=== PATIENT | female | born 1995 | race Caucasian/White ===

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

== ENCOUNTER 2018-01-09 16:59 | Outpatient (CLI) | payer MEDICAID | END 2018-01-09 17:00 | disposition EMS.NT | LOC: EMS 16:59 | PROVIDERS: ATTEND Surgery | DX: M25.561 Pain in right knee (principal); V49.40XA Driver injured in collision with unspecified motor vehicles in traffic accident, initial encounter; Y92.413 State road as the place of occurrence of the external cause ==

== ENCOUNTER 2018-02-27 08:00 | Outpatient (CLI) | payer MEDICAID | END 2018-02-27 08:01 | disposition home or self-care (01) | LOC: LAB.R 08:00 | PROVIDERS: ATTEND Obstetrics & Gynecology | DX: N89.8 Other specified noninflammatory disorders of vagina (principal); Z11.3 Encounter for screening for infections with a predominantly sexual mode of transmission | CPT/HCPCS: 87480; 87491; 87510; 87591; 87660 ==

== ENCOUNTER 2018-03-20 08:00 | Outpatient (CLI) | payer MEDICAID | END 2018-03-20 08:01 | LOC: LAB.R 08:00 | PROVIDERS: ATTEND Obstetrics & Gynecology | DX: Z11.3 Encounter for screening for infections with a predominantly sexual mode of transmission (principal) | CPT/HCPCS: 87491; 87591 ==

== ENCOUNTER 2018-04-08 11:30 | Emergency (ER) | payer MEDICAID ==
[2018-04-08 11:42] VITALS: BP 113/71
--- NOTE | 2018-04-08 12:30 | ED Physician Documentation ---
PD HPI URI - Stated complaint Stated Complaint: THROAT PX - Chief complaint Chief Complaint: Heent - History obtained from History obtained from: Patient - History of Present Illness Timing - onset: How many days ago (1-2) Timing duration: Days Timing details: Abrupt onset, Still present Associated symptoms: Fever, Sore throat, Swollen nodes. No: Nasal congestion, Dry cough, NVD Contributing factors: No: Sick contact, Travel, Immunocompromised Worsened by: Other (swallowing) Recently seen: Not recently seen Review of Systems Constitutional: reports: Fever, Myalgias Nose: denies: Rhinorrhea / runny nose, Congestion, Sinus pressure / pain Throat: reports: Sore throat, Swollen tonsils Respiratory: denies: Cough PD PAST MEDICAL HISTORY - Past Medical History Cardiovascular: None Respiratory: None Neuro: None - Past Surgical History Past Surgical History: No - Present Medications Home Medications: Ambulatory Orders Medication Instructions Recorded Confirmed Cephalexin [Keflex] 500 mg PO QID #18 capsule 04/08/18 Dexamethasone [Decadron] 4 mg PO DAILY #5 tablet 04/08/18 - Allergies Allergies/Adverse Reactions: Allergies Allergy/AdvReac Type Severity Reaction Status Date / Time No Known Drug Allergies Allergy Verified 04/08/18 11:41 - Social History Does the pt smoke?: No Smoking Status: Never smoker Does the pt drink ETOH?: No Does the pt have substance abuse?: No - Immunizations Immunizations are current?: Yes PD ED PE NORMAL - Vitals Vital signs reviewed: Yes - General General: Alert and oriented X 3, Well developed/nourished - HEENT HEENT: Atraumatic, Ears normal. No: Pharynx benign (enlarged tonsils with exudate. No peritonsillar swelling. ) - Neck Neck: Supple, no meningeal sign, Other (anterior adenopathy. ) - Cardiac Cardiac: RRR, No murmur - Respiratory Respiratory: Clear bilaterally - Abdomen Abdomen: Soft, Non tender - Derm Derm: Normal color, Warm and dry, No rash Results - Vitals Vitals: Oxygen O2 Source Room air - Labs Labs: Microbiology 04/08/18 12:03 Group A Strep Throat Culture - Final Throat MIXED OROPHARYNGEAL ASHLEY PRESENT. NO BETA STREP PRESENT IN CULTURE. Laboratory Tests 04/08/18 12:03 Group A Strep Rapid Negative PD MEDICAL DECISION MAKING - ED course Complexity details: considered differential (has high suspicion for bacterial (4 /4 Centor)), d/w patient - Sepsis Event Vital Signs: Oxygen O2 Source Room air Departure - Departure Disposition: 01 Home, Self Care Clinical Impression: Pharyngitis, acute Qualifiers: Pharyngitis/tonsillitis etiology: unspecified etiology Qualified Code(s): J02.9 - Acute pharyngitis, unspecified Condition: Stable Record reviewed to determine appropriate education?: Yes Instructions: ED Strep Pharyngitis Poss Prescriptions: Cephalexin [Keflex] 500 mg PO QID #18 capsule Dexamethasone [Decadron] 4 mg PO DAILY #5 tablet Comments: Drink lots of fluids. Decadron for the swelling. Tylenol or ibuprofen if needed for pains. Cephalexin antibiotic as this is suspicious for strep. The rapid test is negative but the culture will take a couple days for the result we will treated as possible strep pending the culture. If that is negative then we can stop the antibiotic. Off work today. Recheck if not improving well over the next few days. Forms: Activity restrictions Discharge Date/Time: 04/08/18 13:10
[2018-04-08] MEDS ORDERED: DEXAMETHASONE 10 MG/ML VIAL PO STA (13:02)
[2018-04-08] MEDS ORDERED: cephALEXin 250 MG CAPSULE PO STA (13:02)
[2018-04-08] MEDS ORDERED: ACETAMINOPHEN 325 MG TABLET PO STA (13:02)
== END 2018-04-08 13:10 | disposition home or self-care (01) ==
LOC: ED 11:30
DX: J02.9 Acute pharyngitis, unspecified (principal)
CPT/HCPCS: 87070; 87430; 99283; A9270

== ENCOUNTER 2018-04-12 21:15 | Emergency (ER) | payer MEDICAID ==
[2018-04-12 21:22] VITALS: BP 120/77
--- NOTE | 2018-04-12 21:26 | ED Physician Documentation ---
PD HPI HEENT - Stated complaint Stated Complaint: SORE THROAT - Chief complaint Chief Complaint: Heent - History obtained from History obtained from: Patient - History of Present Illness Timing - onset: Other (She has had a week of sore throat, had a runny nose today and is bringing phlegm up from the throat but not coughing per se. She has had some body aches and lower abdominal pain as well and fatigue. She was seen here about 5 days ago diagnosed with clinical strep, both a rapid strep and subsequently the culture have been negative. She continues to have a severe sore throat.) Review of Systems Constitutional: reports: Myalgias, Fatigue. denies: Fever Ears: denies: Ear pain Nose: denies: Rhinorrhea / runny nose Throat: reports: Sore throat GI: denies: Vomiting, Diarrhea PD PAST MEDICAL HISTORY - Past Medical History Cardiovascular: None Respiratory: None Neuro: None - Past Surgical History Past Surgical History: No - Present Medications Home Medications: Ambulatory Orders Medication Instructions Recorded Confirmed Meloxicam [Mobic] 7.5 mg PO BIDWM PRN #15 tablet 04/12/18 - Allergies Allergies/Adverse Reactions: Allergies Allergy/AdvReac Type Severity Reaction Status Date / Time No Known Drug Allergies Allergy Verified 04/12/18 21:20 - Social History Does the pt smoke?: No Smoking Status: Never smoker Does the pt drink ETOH?: No Does the pt have substance abuse?: No - Immunizations Immunizations are current?: Yes PD ED PE NORMAL - Vitals Vital signs reviewed: Yes - General General: Alert and oriented X 3, No acute distress - HEENT HEENT: Other (Tonsils are red but not swollen with some exudates especially on the left but no asymmetry otherwise.) - Neck Neck: Supple, no meningeal sign, No bony TTP, Other (Moderate anterior cervical adenopathy) - Abdomen Abdomen: Soft, Non tender - Derm Derm: No rash - Neuro Neuro: Alert and oriented X 3, Normal speech - Psych Psych: Normal mood, Normal affect Results - Vitals Vitals: Vital Signs - 24 hr 04/12/18 21:18 Temperature 36.5 C Heart Rate 83 Respiratory 16 Rate Blood Pressure 120/77 O2 Saturation 99 Oxygen O2 Source Room air - Labs Labs: Laboratory Tests 04/12/18 21:35 Infectious Greenlee Assay NEGATIVE PD MEDICAL DECISION MAKING - Sepsis Event Vital Signs: Vital Signs - 24 hr 04/12/18 21:18 Temperature 36.5 C Heart Rate 83 Respiratory 16 Rate Blood Pressure 120/77 O2 Saturation 99 Oxygen O2 Source Room air Departure - Departure Disposition: 01 Home, Self Care Clinical Impression: Viral pharyngitis Condition: Good Record reviewed to determine appropriate education?: Yes Instructions: ED Pharyngitis Viral Prescriptions: Meloxicam [Mobic] 7.5 mg PO BIDWM PRN #15 tablet PRN Reason: Pain Comments: Greenlee and strep test are negative, STD tests on your throat are pending and we will call you in approximately 3 days of positive. Follow-up with your doctor in a week if not better.
[2018-04-12] MEDS ORDERED: IBUPROFEN 800 MG TABLET PO STA (22:02)
[2018-04-17 17:06] LABS: C.TRACHOMATIC RNA TMA THROAT NOT DETECTED; N.GONORRHOEAE RNA TMA THROAT NOT DETECTED
== END 2018-04-12 22:12 | disposition home or self-care (01) ==
LOC: ED 21:15
DX: J02.8 Acute pharyngitis due to other specified organisms (principal)
CPT/HCPCS: 36415; 86308; 87491; 99281; 99283; A9270

== ENCOUNTER 2019-10-07 11:09 | Emergency (ER) | payer MEDICAID, OTHER ==
[2019-10-07 11:18] VITALS: BP 127/79
--- NOTE | 2019-10-07 12:14 | ED Physician Documentation ---
PD HPI CHEST PAIN - Stated complaint Stated Complaint: MED REACTION - Chief complaint Chief Complaint: Abd Pain - History obtained from History obtained from: Patient - History of Present Illness Timing - onset: Other (She is been on doxycycline for about 6 months for acne. 2 days ago she took it at bedtime and woke up the next day with difficulty swallowing and pain with swallowing. There is no pain when she is upright. However she does have significant pain when laying flat.) Review of Systems Constitutional: denies: Fever, Chills Throat: denies: Sore throat Cardiac: denies: Palpitations Respiratory: denies: Dyspnea, Cough PD PAST MEDICAL HISTORY - Past Medical History Cardiovascular: None Respiratory: None Neuro: None - Past Surgical History Past Surgical History: No - Present Medications Home Medications: Ambulatory Orders Medication Instructions Recorded Confirmed Meloxicam [Mobic] 7.5 mg PO BIDWM PRN #15 tablet 04/12/18 Mometasone Furoate [Nasonex] 1 spray NS BID #1 spray.pump 04/12/18 Magic Mouthwash 5 ml PO Q4H PRN #100 ml 10/07/19 - Allergies Allergies/Adverse Reactions: Allergies Allergy/AdvReac Type Severity Reaction Status Date / Time No Known Drug Allergies Allergy Verified 04/12/18 21:20 - Social History Does the pt smoke?: No Smoking Status: Never smoker Does the pt drink ETOH?: No Does the pt have substance abuse?: No - Immunizations Immunizations are current?: Yes PD ED PE NORMAL - Vitals Vital signs reviewed: Yes - General General: Alert and oriented X 3, No acute distress - HEENT HEENT: PERRL, EOMI, Pharynx benign - Neck Neck: Supple, no meningeal sign, No bony TTP - Cardiac Cardiac: RRR, No murmur - Respiratory Respiratory: No respiratory distress, Clear bilaterally, Other (No rub or crunch) - Abdomen Abdomen: Non tender - Neuro Neuro: Alert and oriented X 3, Normal speech Results - Vitals Vitals: Vital Signs - 24 hr 10/07/19 11:12 Temperature 36.5 C Heart Rate 80 Respiratory 18 Rate Blood Pressure 127/79 O2 Saturation 100 Oxygen O2 Source Room air Departure - Departure Disposition: 01 Home, Self Care Clinical Impression: Pill esophagitis due to tetracycline Condition: Good Record reviewed to determine appropriate education?: Yes Instructions: Esophagitis Prescriptions: Magic Mouthwash 5 ml PO Q4H PRN #100 ml PRN Reason: Chest Pain Comments: This should go away in another couple of days. Return for new worsening symptoms. Do not take your doxycycline again until completely better. As discussed doxycycline should be taken well before bedtime and with a significant mount of water. You should be upright for at least half an hour after taking doxycycline.
== END 2019-10-07 12:16 | disposition home or self-care (01) ==
LOC: ED 11:09
DX: K20.8 Other esophagitis (principal); T36.4X5A Adverse effect of tetracyclines, initial encounter
CPT/HCPCS: 99282; 99283

== ENCOUNTER 2019-10-10 13:37 | Emergency (ER) | payer OTHER ==
[2019-10-10 13:53] VITALS: BP 112/65
--- NOTE | 2019-10-10 14:05 | ED Physician Documentation ---
History of Present Illness - Stated complaint Stated Complaint: PX WHEN EATING - Chief complaint Chief Complaint: Abd Pain - History obtained from History obtained from: Patient (4-5 nights ago's developed pill esophagitis from doxycycline. Seen here, exam was negative. Sent home with Magic mouthwash which is not very helpful and she continues to have ripping high epigastric/low sternal pain when swallowing or laying flat.) Review of Systems Constitutional: denies: Fever, Chills Cardiac: denies: Palpitations Respiratory: denies: Cough GI: denies: Nausea, Vomiting, Diarrhea PD PAST MEDICAL HISTORY - Past Medical History Cardiovascular: None Respiratory: None Neuro: None - Past Surgical History Past Surgical History: No - Present Medications Home Medications: Ambulatory Orders Medication Instructions Recorded Confirmed Meloxicam [Mobic] 7.5 mg PO BIDWM PRN #15 tablet 04/12/18 Mometasone Furoate [Nasonex] 1 spray NS BID #1 spray.pump 04/12/18 Magic Mouthwash 5 ml PO Q4H PRN #100 ml 10/07/19 Famotidine [Pepcid] 20 mg PO BID #60 tablet 10/10/19 - Allergies Allergies/Adverse Reactions: Allergies Allergy/AdvReac Type Severity Reaction Status Date / Time No Known Drug Allergies Allergy Verified 04/12/18 21:20 - Social History Does the pt smoke?: No Smoking Status: Never smoker Does the pt drink ETOH?: No Does the pt have substance abuse?: No - Immunizations Immunizations are current?: Yes PD ED PE NORMAL - Vitals Vital signs reviewed: Yes - General General: Alert and oriented X 3, No acute distress - HEENT HEENT: PERRL, EOMI - Neck Neck: Supple, no meningeal sign, No bony TTP - Cardiac Cardiac: RRR, No murmur - Respiratory Respiratory: No respiratory distress, Clear bilaterally - Abdomen Abdomen: Non tender - Extremities Extremities: No edema, No calf tenderness / cord - Neuro Neuro: Alert and oriented X 3, Normal speech Results - Vitals Vitals: Vital Signs - 24 hr 10/10/19 13:49 Temperature 36.9 C Heart Rate 69 Respiratory 16 Rate Blood Pressure 112/65 O2 Saturation 98 Oxygen O2 Source Room air - Labs Labs: Laboratory Tests 10/10/19 14:07 Ur Specific [place] 1.020 Urine HCG, Qual NEGATIVE - Rads (name of study) 2v chest Radiology: EMP read contemporaneously (NAD) PD MEDICAL DECISION MAKING - ED course ED course: 23-year-old woman with persistent symptoms of pill esophagitis, x-ray done without evidence of pneumomediastinum etc. Her exam remains normal. We will trial some Pepcid. Departure - Departure Disposition: Home, Self Care Clinical Impression: Pill esophagitis due to tetracycline Condition: Good Record reviewed to determine appropriate education?: Yes Instructions: Esophagitis Prescriptions: Famotidine [Pepcid] 20 mg PO BID #60 tablet Comments: Your x-ray looks okay, continue to not take your doxycycline until completely better. Add on the Pepcid which should help with the inflammation in your esophagus, although unfortunately it does not work as fast as the lidocaine so may take a day or 2 to kick in. Call your doctor to arrange a follow-up appointment, make the next available appointment. In the interim, return anytime if worse or if new symptoms develop. Discharge Date/Time: 10/10/19 15:43
[2019-10-10 14:34] LABS: HCG UR QUAL NEGATIVE
--- NOTE | 2019-10-10 15:27 | XRAY Report ---
Reason: chest pain Procedure Date: 10/10/2019 Accession Number: [id number] / [id number] Procedure: XR - Chest 2 View X-Ray CPT Code: 42163 Final Report FULL RESULT: EXAM: CHEST RADIOGRAPHY EXAM DATE: 10/10/2019 03:05 PM. CLINICAL HISTORY: Chest/epigastric pain for 1 week, worse with eating. COMPARISON: None. TECHNIQUE: 2 views. FINDINGS: Lungs/Pleura: No focal opacities evident. No pleural effusion. No pneumothorax. Normal volumes. Mediastinum: Heart and mediastinal contours are unremarkable. Other: No bony abnormalities identified. IMPRESSION: Normal 2-view chest radiography. [facility]
== END 2019-10-10 15:43 | disposition home or self-care (01) ==
LOC: ED 13:37
DX: K20.9 Esophagitis, unspecified (principal); T36.4X5A Adverse effect of tetracyclines, initial encounter
CPT/HCPCS: 71046; 81025; 99283; 99284

== ENCOUNTER 2020-02-24 16:43 | Outpatient (CLI) | payer MEDICAID | END 2020-02-24 16:44 | disposition home or self-care (01) | LOC: COV 16:43 | PROVIDERS: ATTEND Family Medicine | DX: R50.9 Fever, unspecified (principal) | CPT/HCPCS: 81599 ==

== ENCOUNTER 2020-05-06 08:00 | Outpatient (CLI) | payer MEDICAID ==
[2020-05-06 21:13] LABS: CANDIDA GROUP DNA POSITIVE (NEGATIVE); CANDIDA KRUSEI DNA NEGATIVE (NEGATIVE); TRICHOMONAS VAGINALIS DNA NEGATIVE (NEGATIVE)
== END 2020-05-06 23:59 | disposition home or self-care (01) ==
LOC: LAB.R 08:00
PROVIDERS: ATTEND Advanced Practice Midwife
DX: N89.8 Other specified noninflammatory disorders of vagina (principal)
CPT/HCPCS: 87661; 87801

== ENCOUNTER 2020-07-07 13:54 | Outpatient (CLI) | payer MEDICAID ==
[2020-07-09 12:12] LABS: HSV 1 IGG TYPE SPECIFIC AB <0.90 index; HSV 2 IGG TYPE SPECIFIC AB >23.00 index
== END 2020-07-07 13:55 | disposition home or self-care (01) ==
LOC: LAB 13:54
PROVIDERS: ATTEND Nurse Practitioner Obstetrics & Gynecology
DX: Z20.2 Contact with and (suspected) exposure to infections with a predominantly sexual mode of transmission (principal)
CPT/HCPCS: 36415; 81599; 86695; 86696

== ENCOUNTER 2021-08-11 10:22 | Outpatient (CLI) | payer MEDICAID ==
[2021-08-11 10:49] LABS: ALBUMIN 4.7 g/dL (3.2-5.5); ALBUMIN/GLOBULIN RATIO 1.7 (1.0-2.2); BILIRUBIN,TOTAL 0.5 mg/dL (0.2-1.0); CALCIUM 9.3 mg/dL (8.5-10.3); CREATININE 0.6 mg/dL (0.4-1.0); POTASSIUM 4.1 mmol/L (3.5-5.0); TOTAL PROTEIN 7.5 g/dL (6.7-8.2)
[2021-08-11 11:08] LABS: THYROID STIMULATING HORMONE 2.22 uIU/mL (0.34-5.60)
[2021-08-11 11:09] LABS: FREE T4 (FREE THYROXINE) 0.74 ng/dL (0.58-1.64)
[2021-08-11 11:13] LABS: PROLACTIN 10.38 ng/mL
[2021-08-11 13:40] LABS: ESTIMATED AVERAGE GLUCOSE 97 mg/dL (70-100)
== END 2021-08-11 10:23 | disposition home or self-care (01) ==
LOC: LAB 10:22
PROVIDERS: ATTEND Obstetrics & Gynecology
DX: N92.0 Excessive and frequent menstruation with regular cycle (principal); R10.2 Pelvic and perineal pain; R68.82 Decreased libido; L70.9 Acne, unspecified; Z13.1 Encounter for screening for diabetes mellitus
CPT/HCPCS: 36415; 80053; 83036; 84146; 84403; 84439; 84443

== ENCOUNTER 2021-08-12 09:00 | Outpatient (CLI) | payer MEDICAID ==
[2021-08-12 21:55] LABS: CHLAMYDIA TRACHOMATIS DNA NEGATIVE (NEGATIVE); NEISSERIA GONORRHOEAE DNA NEGATIVE (NEGATIVE); TRICHOMONAS VAGINALIS DNA NEGATIVE (NEGATIVE)
== END 2021-08-12 23:59 | disposition home or self-care (01) ==
LOC: LAB 09:00
PROVIDERS: ATTEND Obstetrics & Gynecology
DX: Z11.3 Encounter for screening for infections with a predominantly sexual mode of transmission (principal)
CPT/HCPCS: 87491; 87591; 87661

== ENCOUNTER 2021-09-03 22:08 | Emergency (ER) | payer MEDICAID ==
[2021-09-03 22:18] VITALS: BP 117/93
[2021-09-03] MEDS ORDERED: diphenhydrAMINE 25 MG CAPSULE PO STA (22:24)
[2021-09-03] MEDS ORDERED: IBUPROFEN 600 MG TABLET PO STA (23:02)
--- NOTE | 2021-09-03 23:03 | ED Physician Documentation ---
PD HPI SKIN - Stated complaint Stated Complaint: STUNG ON R HAND - Chief complaint Chief Complaint: Wound - History obtained from History obtained from: Patient - Additional information Additional information: 25-year-old woman without any allergies presents with bee sting to finger of R hand with mild swelling, sudden onset constant pain. no other associated symptoms. has not taken any meds. Review of Systems Skin: reports: Bite / sting PD PAST MEDICAL HISTORY - Past Medical History Cardiovascular: None Respiratory: None Neuro: None - Past Surgical History Past Surgical History: No - Present Medications Home Medications: Ambulatory Orders Medication Instructions Recorded Confirmed Meloxicam [Mobic] 7.5 mg PO BIDWM PRN #15 tablet 04/12/18 Mometasone Furoate [Nasonex] 1 spray NS BID #1 spray.pump 04/12/18 Magic Mouthwash 5 ml PO Q4H PRN #100 ml 10/07/19 Famotidine [Pepcid] 20 mg PO BID #60 tablet 10/10/19 - Allergies Allergies/Adverse Reactions: Allergies Allergy/AdvReac Type Severity Reaction Status Date / Time No Known Drug Allergies Allergy Verified 09/03/21 22:18 - Social History Does the pt smoke?: No Smoking Status: Never smoker Does the pt drink ETOH?: No Does the pt have substance abuse?: No - Immunizations Immunizations are current?: Yes - POLST Patient has POLST: No PD ED PE NORMAL - Vitals Vital signs reviewed: Yes - General General: Alert and oriented X 3, No acute distress, Well developed/nourished - HEENT HEENT: Atraumatic, PERRL, EOMI - Derm Derm: Normal color, Warm and dry, Other (R third finger with small area of erythema and swelling. nontender with ROM. normal cap refill) Results - Vitals Vitals: Vital Signs - 24 hr 09/03/21 22:10 Temperature 36.9 C Heart Rate 87 Respiratory 16 Rate Blood Pressure 117/93 H O2 Saturation 100 Oxygen O2 Source Room air PD MEDICAL DECISION MAKING - ED course ED course: 25-year-old woman presented with a bee sting to her finger. Benadryl provided an ice pack provided. symptomatic care discussed. Return precautions given. Departure - Departure Disposition: 01 Home, Self Care Clinical Impression: Bee sting Condition: Good Instructions: ED Bite Insect Comments: You are seen in the emergency department after bee sting. Please take Benadryl 50 mg every 6 hours as needed for pain and swelling. Apply ice for 20 minutes every hour and elevate your hand above the level of your heart to reduce swelling. Take Motrin 600 mg every 6 hours as needed for pain. Return to the emergency department you have any new or worsening symptoms or other concerns. Discharge Date/Time: 09/03/21 23:08
== END 2021-09-03 23:08 | disposition home or self-care (01) ==
LOC: ED 22:08
DX: T63.441A Toxic effect of venom of bees, accidental (unintentional), initial encounter (principal); M79.89 Other specified soft tissue disorders; X58.XXXA Exposure to other specified factors, initial encounter
CPT/HCPCS: 99281; 99282; A9270